=== PATIENT | male | born 1990 | race Caucasian/White ===

== ENCOUNTER 2018-12-15 17:31 | Emergency (ER) | payer SELFPAY ==
[2018-12-15 17:42] VITALS: TEMP 36.8
[2018-12-15] MEDS: ACETAMINOPHEN 325 MG TABLET 975 MG PO (17:49)
[2018-12-15] MEDS: IBUPROFEN 400 MG TABLET 800 MG PO (17:50)
--- NOTE | 2018-12-15 17:50 | DI.RAD.S_ITS ---
PROCEDURE: XR CLAVICLE RT INDICATIONS: fall snowboarding, right sided pain TECHNIQUE: 2 views of the clavicle were acquired. COMPARISON: None. FINDINGS: Bones: There is a displaced fracture of the mid right clavicular diaphysis. The acromioclavicular and glenohumeral joints appear grossly intact. Visualized ribs are intact. Soft tissues: No suspicious soft tissue calcifications. IMPRESSION: Displaced clavicular diaphyseal fracture. Dictated by: Saray Chambers M.D. on 12/15/2018 at 18:17 Approved by: Saray Chambers M.D. on 12/15/2018 at 18:17
--- NOTE | 2018-12-15 19:55 | ED.UPPEXIN ---
HPI - Extremity Injury (Upper) <LOVE Yin - Last Filed: 12/15/18 22:10> General Chief Complaint: Extremity Injury, Upper Stated Complaint: THINKS HE BROKE HIS RIGHT COLAR BONE Time Seen by Provider: 12/15/18 18:22 Source: patient Mode of arrival: ambulatory Limitations: no limitations History of Present Illness HPI narrative: healthy 28-year-old male that is a nonsmoker here for complaint of pain into his right clavicle area after having a snowboarding injury this afternoon. He states that he accidentally fell while snowboarding landing on his right lateral shoulder area. He felt something pop in his anterior shoulder area and thinks he broke his clavicle. He denies any head injury. No neck pain. No loss of conscious. No nausea or vomiting. He is ambulatory into the emergency room. No other concerns or complaints at this timeframe Related Data Previous Rx's Medication Instructions Recorded hydrocodone-acetaminophen [[place]] 1 tab PO Q6H PRN #8 tab 12/15/18 Allergies Allergy/AdvReac Type Severity Reaction Status Date / Time No Known Drug Allergies Allergy Verified 12/15/18 17:45 Review of Systems <LOVE Yin - Last Filed: 12/15/18 22:10> Constitutional Denies chills, Denies fever(s), Denies lethargy and Denies weakness Eyes Denies change in vision, Denies eye discharge, Denies irritation and Denies loss of vision ENT Ears, Nose, Mouth, and Throat: Denies change in voice, Denies neck pain and Denies sore throat Cardiovascular Denies chest pain, Denies irregular heart rhythm, Denies lightheadedness, Denies palpitations, Denies dyspnea, Denies dyspnea on exertion and Denies orthopnea Respiratory Denies cough, Denies dyspnea, Denies dyspnea on exertion and Denies wheezing Gastrointestinal Gastrointestinal: Denies abdominal pain, Denies change in bowel habits, Denies diarrhea, Denies nausea and Denies vomiting Genitourinary Denies hematuria, Denies flank pain, Denies urinary incontinence and Denies urinary urgency Musculoskeletal Denies neck pain Comments: pain to right clavicle area Integumentary/Breasts Denies pruritus, Denies erythema, Denies rash and Denies wounds Neurologic Denies confusion, Denies loss of vision and Denies weakness Psychiatric Denies anxiety, Denies confusion, Denies depression, Denies homicidal ideation and Denies suicidal ideation Endocrine Denies palpitations Hematologic/Lymphatic Denies easy bruising Allergic/Immunologic Denies wheezing PFSH <LOVE Yin - Last Filed: 12/15/18 22:10> Social History Smoking Status: Never smoker Social History Smoking Status: Never smoker Exam <LOVE Yin - Last Filed: 12/15/18 22:10> Initial Vital Signs Initial Vital Signs: Vital Signs Temperature 98.3 F 12/15/18 17:42 Const General: cooperative and well developed Nutritional Appearance: well nourished Orientation: alert, awake, oriented x3 and not confused HENMT Mouth: oral mucosae normal and moist mucous membranes Eyes Conjunctivae: conjunctivae normal Sclera: sclerae normal Pupils: PERRL EOM: EOM intact bilaterally Resp Effort & Inspection: normal respiratory effort, able to speak in complete sentences, no respiratory distress and no use of accessory muscles Auscultation: clear to auscultation bilaterally, no rales, no rhonchi and no wheezes Cardio Rate: regular rate Rhythm: regular rhythm Heart Sounds: no click, no gallops, no murmurs and no rubs Pulses: normal peripheral pulses Skin General: no rashes or lesions noted, No jaundice and No petechiae Neuro General: alert, oriented x3, gait normal and no focal motor deficits Speech: speech normal Extrem Other: mild swelling to his right clavicle area. No ecchymosis. No tenting. No open lesion. Distal sensation is intact. Distal range of motions intact. Distal pulses are intact. <Theo Mayes DO - Last Filed: 12/15/18 23:56> Initial Vital Signs Initial Vital Signs: Vital Signs Temperature 98.3 F 12/15/18 17:42 Course <LOVE Yin - Last Filed: 12/15/18 22:10> Orders Ordered: ED Orders 12/15/18 17:50 XR clavicle RT Stat Discontinued Medications Acetaminophen (Tylenol) 975 mg PO NOW ONE Stop: 12/15/18 17:50 Last Admin: 12/15/18 17:49 Dose: 975 mg Ibuprofen (Advil) 800 mg PO NOW ONE Stop: 12/15/18 17:50 Last Admin: 12/15/18 17:50 Dose: 800 mg Vital Signs - 8 hr 12/15/18 17:42 12/15/18 20:11 Temperature 98.3 F 98.2 F Pulse Rate 98 H Respiratory Rate 17 Blood Pressure [Right Wrist] 152/97 H Pulse Oximetry 99 <Theo Mayes DO - Last Filed: 12/15/18 23:56> Orders Ordered: ED Orders 12/15/18 17:50 XR clavicle RT Stat Discontinued Medications Acetaminophen (Tylenol) 975 mg PO NOW ONE Stop: 12/15/18 17:50 Last Admin: 12/15/18 17:49 Dose: 975 mg Ibuprofen (Advil) 800 mg PO NOW ONE Stop: 12/15/18 17:50 Last Admin: 12/15/18 17:50 Dose: 800 mg Vital Signs - 8 hr 12/15/18 17:42 12/15/18 20:11 Temperature 98.3 F 98.2 F Pulse Rate 98 H Respiratory Rate 17 Blood Pressure [Right Wrist] 152/97 H Pulse Oximetry 99 MDM - Extremity Injury (Upper) <LOVE Yin - Last Filed: 12/15/18 22:10> Imaging Data Right clavicle : Radiologist's impression: [place] [address] XRay Report Signed Patient: Luke Villatoro LMR#: [id number] : 1990Acct:[id number] Age/Sex: 28 / MDate of Service: 12/15/18 Loc: ED Accession Number: [id number] Procedure: XR clavicle RT Ordering Provider: De Gustafson D.O. PROCEDURE: XR CLAVICLE RT INDICATIONS: fall snowboarding, right sided pain TECHNIQUE: 2 views of the clavicle were acquired. COMPARISON: None. FINDINGS: Bones: There is a displaced fracture of the mid right clavicular diaphysis. The acromioclavicular and glenohumeral joints appear grossly intact. Visualized ribs are intact. Soft tissues: No suspicious soft tissue calcifications. IMPRESSION: Displaced clavicular diaphyseal fracture. Dictated by: Saray Chambers M.D. on 12/15/2018 at 18:17 Approved by: Saray Chambers M.D. on 12/15/2018 at 18:17 MDM Narrative Medical decision making narrative: x-ray the right clavicle was obtained and shows a mid mildly displaced clavicular fracture. No tenting. No open lesions. He is placed in a sling for comfort and support. [id number] ibuprofen as needed for any discomfort. Handful of [place] is prescribed for breakthrough pain. He is from out of town and he is only in town for the next few days. Will have him follow-up with Orthopedics when he returns home. Ice to area to help with any swelling. For any worsening symptoms return to the emergency room. Discharge Plan Departure Patient Disposition: Home Clinical Impression: Fracture of clavicle, right, closed Qualifiers: Encounter type: initial encounter Clavicle location: shaft Fracture alignment: displaced Qualified Code(s): S42.021A - Displaced fracture of shaft of right clavicle, initial encounter for closed fracture Discharge Date/Time: 12/15/18 20:59 Interventions: ED Discharge Assessment Last Done: 12/15/18 20:58 Instructions: DI for Clavicle Fracture-Adult Activity Restrictions/Additional Instructions: x-ray shows a fracture of the right clavicle. You have been placed in a sling for comfort and support use as directed. Use [id number] ibuprofen as needed for any discomfort. Ice to area to help with any swelling follow-up with Orthopedics when he returns home in the next several days. For any worsening symptoms return to the emergency room. Prescriptions: New hydrocodone-acetaminophen [[place]] 5-325 mg tablet 1 tab PO Q6H PRN (Reason: pain) Qty: 8 RF: 0 Referrals: [facility] [Provider Group] <Theo Mayes DO - Last Filed: 12/15/18 23:56> [facility] ED Attending Quique Attestation: I was available for consultation during this patient's emergency department encounter
--- NOTE | 2018-12-15 20:00 | ED_ITS ---
HPI - Extremity Injury (Upper) <LOVE Yin - Last Filed: 12/15/18 22:10> General Chief Complaint: Extremity Injury, Upper Stated Complaint: THINKS HE BROKE HIS RIGHT COLAR BONE Time Seen by Provider: 12/15/18 18:22 Source: patient Mode of arrival: ambulatory Limitations: no limitations History of Present Illness HPI narrative: healthy 28-year-old male that is a nonsmoker here for complaint of pain into his right clavicle area after having a snowboarding injury this afternoon. He states that he accidentally fell while snowboarding landing on his right lateral shoulder area. He felt something pop in his anterior shoulder area and thinks he broke his clavicle. He denies any head injury. No neck pain. No loss of conscious. No nausea or vomiting. He is ambulatory into the emergency room. No other concerns or complaints at this timeframe Related Data Previous Rx's Medication Instructions Recorded hydrocodone-acetaminophen [[place]] 1 tab PO Q6H PRN #8 tab 12/15/18 Allergies Allergy/AdvReac Type Severity Reaction Status Date / Time No Known Drug Allergies Allergy Verified 12/15/18 17:45 Review of Systems <LOVE Yin - Last Filed: 12/15/18 22:10> Constitutional Denies chills, Denies fever(s), Denies lethargy and Denies weakness Eyes Denies change in vision, Denies eye discharge, Denies irritation and Denies loss of vision ENT Ears, Nose, Mouth, and Throat: Denies change in voice, Denies neck pain and Denies sore throat Cardiovascular Denies chest pain, Denies irregular heart rhythm, Denies lightheadedness, Denies palpitations, Denies dyspnea, Denies dyspnea on exertion and Denies orthopnea Respiratory Denies cough, Denies dyspnea, Denies dyspnea on exertion and Denies wheezing Gastrointestinal Gastrointestinal: Denies abdominal pain, Denies change in bowel habits, Denies diarrhea, Denies nausea and Denies vomiting Genitourinary Denies hematuria, Denies flank pain, Denies urinary incontinence and Denies urinary urgency Musculoskeletal Denies neck pain Comments: pain to right clavicle area Integumentary/Breasts Denies pruritus, Denies erythema, Denies rash and Denies wounds Neurologic Denies confusion, Denies loss of vision and Denies weakness Psychiatric Denies anxiety, Denies confusion, Denies depression, Denies homicidal ideation and Denies suicidal ideation Endocrine Denies palpitations Hematologic/Lymphatic Denies easy bruising Allergic/Immunologic Denies wheezing PFSH <LOVE Yin - Last Filed: 12/15/18 22:10> Social History Smoking Status: Never smoker Social History Smoking Status: Never smoker Exam <LOVE Yin - Last Filed: 12/15/18 22:10> Initial Vital Signs Initial Vital Signs: Vital Signs Temperature 98.3 F 12/15/18 17:42 Const General: cooperative and well developed Nutritional Appearance: well nourished Orientation: alert, awake, oriented x3 and not confused HENMT Mouth: oral mucosae normal and moist mucous membranes Eyes Conjunctivae: conjunctivae normal Sclera: sclerae normal Pupils: PERRL EOM: EOM intact bilaterally Resp Effort & Inspection: normal respiratory effort, able to speak in complete sentences, no respiratory distress and no use of accessory muscles Auscultation: clear to auscultation bilaterally, no rales, no rhonchi and no wheezes Cardio Rate: regular rate Rhythm: regular rhythm Heart Sounds: no click, no gallops, no murmurs and no rubs Pulses: normal peripheral pulses Skin General: no rashes or lesions noted, No jaundice and No petechiae Neuro General: alert, oriented x3, gait normal and no focal motor deficits Speech: speech normal Extrem Other: mild swelling to his right clavicle area. No ecchymosis. No tenting. No open lesion. Distal sensation is intact. Distal range of motions intact. Distal pulses are intact. <Theo Mayes DO - Last Filed: 12/15/18 23:56> Initial Vital Signs Initial Vital Signs: Vital Signs Temperature 98.3 F 12/15/18 17:42 Course <LOVE Yin - Last Filed: 12/15/18 22:10> Orders Ordered: ED Orders 12/15/18 17:50 XR clavicle RT Stat Discontinued Medications Acetaminophen (Tylenol) 975 mg PO NOW ONE Stop: 12/15/18 17:50 Last Admin: 12/15/18 17:49 Dose: 975 mg Ibuprofen (Advil) 800 mg PO NOW ONE Stop: 12/15/18 17:50 Last Admin: 12/15/18 17:50 Dose: 800 mg Vital Signs - 8 hr 12/15/18 17:42 12/15/18 20:11 Temperature 98.3 F 98.2 F Pulse Rate 98 H Respiratory Rate 17 Blood Pressure [Right Wrist] 152/97 H Pulse Oximetry 99 <Theo Mayes DO - Last Filed: 12/15/18 23:56> Orders Ordered: ED Orders 12/15/18 17:50 XR clavicle RT Stat Discontinued Medications Acetaminophen (Tylenol) 975 mg PO NOW ONE Stop: 12/15/18 17:50 Last Admin: 12/15/18 17:49 Dose: 975 mg Ibuprofen (Advil) 800 mg PO NOW ONE Stop: 12/15/18 17:50 Last Admin: 12/15/18 17:50 Dose: 800 mg Vital Signs - 8 hr 12/15/18 17:42 12/15/18 20:11 Temperature 98.3 F 98.2 F Pulse Rate 98 H Respiratory Rate 17 Blood Pressure [Right Wrist] 152/97 H Pulse Oximetry 99 MDM - Extremity Injury (Upper) <LOVE Yin - Last Filed: 12/15/18 22:10> Imaging Data Right clavicle : Radiologist's impression: [place] [address] XRay Report Signed Patient: Luke Villatoro LMR#: [id number] : 1990Acct:[id number] Age/Sex: 28 / MDate of Service: 12/15/18 Loc: ED Accession Number: [id number] Procedure: XR clavicle RT Ordering Provider: De Gustafson D.O. PROCEDURE: XR CLAVICLE RT INDICATIONS: fall snowboarding, right sided pain TECHNIQUE: 2 views of the clavicle were acquired. COMPARISON: None. FINDINGS: Bones: There is a displaced fracture of the mid right clavicular diaphysis. The acromioclavicular and glenohumeral joints appear grossly intact. Visualized ribs are intact. Soft tissues: No suspicious soft tissue calcifications. IMPRESSION: Displaced clavicular diaphyseal fracture. Dictated by: Saray Chambers M.D. on 12/15/2018 at 18:17 Approved by: Saray Chambers M.D. on 12/15/2018 at 18:17 MDM Narrative Medical decision making narrative: x-ray the right clavicle was obtained and shows a mid mildly displaced clavicular fracture. No tenting. No open lesions. He is placed in a sling for comfort and support. [id number] ibuprofen as needed for any discomfort. Handful of [place] is prescribed for breakthrough pain. He is from out of town and he is only in town for the next few days. Will have him follow-up with Orthopedics when he returns home. Ice to area to help with any swelling. For any worsening symptoms return to the emergency room. Discharge Plan Departure Patient Disposition: Home Clinical Impression: Fracture of clavicle, right, closed Qualifiers: Encounter type: initial encounter Clavicle location: shaft Fracture alignment: displaced Qualified Code(s): S42.021A - Displaced fracture of shaft of right clavicle, initial encounter for closed fracture Discharge Date/Time: 12/15/18 20:59 Interventions: ED Discharge Assessment Last Done: 12/15/18 20:58 Instructions: DI for Clavicle Fracture-Adult Activity Restrictions/Additional Instructions: x-ray shows a fracture of the right clavicle. You have been placed in a sling for comfort and support use as directed. Use [id number] ibuprofen as needed for any discomfort. Ice to area to help with any swelling follow-up with Orthopedics when he returns home in the next several days. For any worsening symptoms return to the emergency room. Prescriptions: New hydrocodone-acetaminophen [[place]] 5-325 mg tablet 1 tab PO Q6H PRN (Reason: pain) Qty: 8 RF: 0 Referrals: [facility] [Provider Group] <Theo Mayes DO - Last Filed: 12/15/18 23:56> [facility] ED Attending Quique Attestation: I was available for consultation during this patient's emergency department encounter
[2018-12-15 20:11] VITALS: BP 152/97; PULSE 98; RESP 17; TEMP 36.8; O2SAT 99
== END 2018-12-15 20:59 | disposition home or self-care (01) ==
PROVIDERS: Emergency Provider Nurse Practitioner Family
DX: S42.021A Displaced fracture of shaft of right clavicle, initial encounter for closed fracture (principal); Y93.23 Activity, snow (alpine) (downhill) skiing, snowboarding, sledding, tobogganing and snow tubing
CPT/HCPCS: 73000; 99282; 99283